=== PATIENT | female | born 1970 | race African-American/Black ===

== ENCOUNTER 2019-08-03 15:32 | Emergency (ER) | payer OTHER ==
[~2019-08-03] VITALS: Ht 165.1 cm; Wt 100.0 kg
[2019-08-03] MEDS ORDERED: VISCOUS LIDOCAINE 2% 15 ML UDC MM STA ×2 (15:53→16:36)
[2019-08-03 17:05] VITALS: BP 151/90
== END 2019-08-03 17:19 | disposition home or self-care (01) ==
LOC: ER 15:32 → EDBD 15:32 → ER 17:19
DX: S01.512A Laceration without foreign body of oral cavity, initial encounter (principal); M79.641 Pain in right hand; M79.631 Pain in right forearm; Y04.2XXA Assault by strike against or bumped into by another person, initial encounter; Y93.89 Activity, other specified; Y92.89 Other specified places as the place of occurrence of the external cause; R03.0 Elevated blood-pressure reading, without diagnosis of hypertension
CPT/HCPCS: 29125; 73090; 73130; 99283

== ENCOUNTER 2021-09-02 18:25 | Emergency (ER) | payer OTHER ==
[~2021-09-02] VITALS: Ht 170.2 cm; Wt 127.0 kg
[2021-09-02] MEDS ORDERED: DIPHENHYDRAMINE 50MG/ML VIAL IV ONE (21:30)
[2021-09-02] MEDS ORDERED: MORPHINE SULFATE 4 MG/ML CPJ (NOT FOR IM USE) IV ONE (21:30)
[2021-09-02 22:19] LABS: CHLORIDE 101 mEq/L (98-107)
[2021-09-02] MEDS ORDERED: KETOROLAC 30MG/ML VIAL IV ONE (22:45)
[2021-09-02 23:22] LABS: BASOPHILS % 0.3 % (0.0-2.0); EOSINOPHILS % 0.6 % (0.0-5.0); HEMATOCRIT. 36.4 % (36.0-48.0); HEMOGLOBIN. 12.5 g/dL (12.0-16.0); LYMPHOCYTES % 7.9 % (20.0-50.0); MEAN CORPUSCULAR HEMOGLOBIN 28.8 pg (28.0-32.0); MEAN PLATELET VOLUME 7.1 fl (7.4-10.4); MONOCYTES % 7.8 % (2.0-8.0); NEUTROPHILS % 83.4 % (40.0-76.0); PLATELET 497 x1000/uL (130-400); RED BLOOD CELL COUNT 4.33 mill/uL (4.2-5.4); RED CELL DISTRIBUTION WIDTH 14.3 % (11.6-14.6)
[2021-09-03] MEDS ORDERED: LORAZEPAM 2MG/ML CPJ IV ONE (00:30)
[2021-09-03 00:37] VITALS: BP 165/108
== END 2021-09-03 02:12 | disposition short-term general hospital (02) ==
LOC: ER 18:25
DX: R21 Rash and other nonspecific skin eruption (principal); L89.620 Pressure ulcer of left heel, unstageable; L89.612 Pressure ulcer of right heel, stage 2
CPT/HCPCS: 36415; 80053; 85025; 85651; 86141; 87040; 93970; 96374; 96375; 99284; J1200; J1885; J2060; J2270

== ENCOUNTER 2021-10-19 20:19 | Inpatient (IN) | payer OTHER ==
[~2021-10-19] VITALS: Ht 162.6 cm; Wt 139.3 kg
[2021-10-19] MEDS ORDERED: ACETAMINOPHEN 325MG TABLET PO STA (22:12)
[2021-10-19] MEDS ORDERED: SODIUM CHLORIDE 0.9% 2,100 ML IV ONE (22:15)
[2021-10-19] MEDS ORDERED: CEFTRIAXONE 1 G PREMIX 50 ML IV ONE (22:15)
[2021-10-19] MEDS ORDERED: MORPHINE SULFATE 4 MG/ML CPJ (NOT FOR IM USE) IV ONE (22:30)
[2021-10-19 23:14] LABS: HEMATOCRIT. 35.6 % (36.0-48.0); HEMOGLOBIN. 12.2 g/dL (12.0-16.0); MEAN CORPUSCULAR HEMOGLOBIN 27.3 pg (28.0-32.0); MEAN CORPUSCULAR VOLUME 79.9 fL (81.0-99.0); MEAN PLATELET VOLUME 8.5 fl (7.4-10.4); PLATELET 501 x1000/uL (130-400); RED BLOOD CELL COUNT 4.46 mill/uL (4.2-5.4); RED CELL DISTRIBUTION WIDTH 14.8 % (11.6-14.6)
[2021-10-19] MEDS ORDERED: VANCOMYCIN 1G PREMIX 200 ML IV ONE (23:15)
[2021-10-19] MEDS ORDERED: CLINDAMYCIN 600 MG in DEXTROSE 5% WATER 50 ML IV ONE (23:15)
[2021-10-19] MEDS ORDERED: MEROPENEM 1,000 MG in SODIUM CHLORIDE 0.9% 100 ML IV ONE (23:15)
[2021-10-20 00:06] LABS: PLATELET ESTIMATE INCREASED
[2021-10-20 00:36] LABS: CHLORIDE 104 mEq/L (98-107)
[2021-10-20 00:44] LABS: CREATINE KINASE 163 IU/L (26-192)
[2021-10-20] MEDS ORDERED: MORPHINE SULFATE 10 MG/ML CPJ IV ONE (01:00)
[2021-10-20] MEDS ORDERED: ONDANSETRON HCL 4MG/2ML INJ IV PRN (14:30)
[2021-10-20] MEDS ORDERED: MAGNESIUM/ALUMINUM HYDROXIDE/SIMETHICONE 30ML UDC PO PRN (14:30)
[2021-10-20] MEDS ORDERED: ACETAMINOPHEN 325MG TABLET PO PRN (14:30)
[2021-10-20] MEDS: ACETAMINOPHEN 325MG TABLET PO PRN ×2 (15:15→21:20)
[2021-10-20] MEDS: MEROPENEM 500 MG in SODIUM CHLORIDE 0.9% 50 ML IV SCH ×2 (15:15→23:07)
[2021-10-20] MEDS: VANCOMYCIN 1G PREMIX 200 ML IV SCH (15:58)
[2021-10-20 18:00] VITALS: BP_SYST 137; BP_SYST 142; BP_DIAS 96
[2021-10-20] MEDS ORDERED: LIP40 PO (19:17)
[2021-10-20] MEDS ORDERED: AMLO5TAB88 PO (19:17)
[2021-10-20] MEDS ORDERED: HYDR-459 PO (19:17)
[2021-10-20 20:00] VITALS: BP 132/89
[2021-10-20] MEDS ORDERED: ZOLPIDEM TARTRATE 5MG TABLET PO PRN (21:00)
[2021-10-20] MEDS: ENOXAPARIN 40MG/0.4ML SYR SUBCUT SCH (21:26)
[2021-10-20] MEDS: SODIUM CHLORIDE 0.9% INJ 3ML FLUSH IVF SCH (22:00)
[2021-10-21] MEDS: ACETAMINOPHEN 325MG TABLET PO PRN ×4 (01:16→20:31)
[2021-10-21] MEDS: VANCOMYCIN 1G PREMIX 200 ML IV SCH ×2 (03:32→17:00)
[2021-10-21 04:00] VITALS: BP 129/76
[2021-10-21] MEDS: SODIUM CHLORIDE 0.9% INJ 3ML FLUSH IVF SCH ×3 (05:31→21:40)
[2021-10-21] MEDS: MEROPENEM 500 MG in SODIUM CHLORIDE 0.9% 50 ML IV SCH ×3 (05:33→21:33)
[2021-10-21] MEDS: ENOXAPARIN 40MG/0.4ML SYR SUBCUT SCH (06:00)
[2021-10-21] MEDS: DIPHENHYDRAMINE 50MG/ML VIAL IV PRN (06:35)
[2021-10-21 08:00] VITALS: BP 118/55
[2021-10-21] MEDS ORDERED: NALOXONE HCL 0.4MG/ML VIAL IV PRN (11:30)
[2021-10-21 12:00] VITALS: BP 128/77
[2021-10-21] MEDS: HYDROCODONE/ACETAMINOPHEN 10/325MG TABLET PO PRN ×3 (12:36→20:30)
[2021-10-21 16:00] VITALS: BP 123/86
[2021-10-21 17:23] VITALS: BP 123/86
[2021-10-21] MEDS: ENOXAPARIN 30MG/0.3ML SYR SUBCUT SCH (18:34)
[2021-10-21 20:00] VITALS: BP 102/71
[2021-10-22] VITALS: BP 112/73
[2021-10-22 03:27] LABS: CHLORIDE 104 mEq/L (98-107)
[2021-10-22] MEDS: HYDROCODONE/ACETAMINOPHEN 10/325MG TABLET PO PRN ×3 (03:44→15:59)
[2021-10-22] MEDS: DIPHENHYDRAMINE 50MG/ML VIAL IV PRN ×2 (03:44→16:05)
[2021-10-22] MEDS: MORPHINE SULFATE 2 MG/ML CPJ (NOT FOR IM USE) IV PRN ×2 (03:44→12:10)
[2021-10-22] MEDS: ACETAMINOPHEN 325MG TABLET PO PRN (03:45)
[2021-10-22 04:00] VITALS: BP 138/82
[2021-10-22] MEDS: SODIUM CHLORIDE 0.9% INJ 3ML FLUSH IVF SCH ×3 (06:15→20:36)
[2021-10-22] MEDS: ENOXAPARIN 30MG/0.3ML SYR SUBCUT SCH ×2 (06:30→18:51)
[2021-10-22] MEDS: MEROPENEM 500 MG in SODIUM CHLORIDE 0.9% 50 ML IV SCH ×2 (06:30→15:59)
[2021-10-22] MEDS: VANCOMYCIN 1G PREMIX 200 ML IV SCH ×2 (06:30→23:48)
[2021-10-22 08:00] VITALS: BP 120/48
[2021-10-22 12:00] VITALS: BP_SYST 130
[2021-10-22 16:00] VITALS: BP 132/50
[2021-10-22] MEDS ORDERED: AZITHROMYCIN 500 MG TABLET PO NR (16:30)
[2021-10-22] MEDS: ERGOCALCIFEROL 50000UNITS CAPSULE PO SCH (18:30)
[2021-10-22 20:00] VITALS: BP 120/80
[2021-10-22] MEDS: CEFTRIAXONE 1,000 MG in DEXTROSE 5% WATER 50 ML IV SCH (20:34)
[2021-10-22] MEDS: DEXAMETHASONE 10 MG/ML VIAL IV SCH (20:35)
[2021-10-23] VITALS: BP 121/91
[2021-10-23 04:00] VITALS: BP 119/84
[2021-10-23] MEDS: ENOXAPARIN 30MG/0.3ML SYR SUBCUT SCH ×2 (06:00→18:00)
[2021-10-23] MEDS: SODIUM CHLORIDE 0.9% INJ 3ML FLUSH IVF SCH ×3 (07:41→22:01)
[2021-10-23 08:24] LABS: CHLORIDE 106 mEq/L (98-107)
[2021-10-23 08:26] LABS: HEMATOCRIT. 33.4 % (36.0-48.0); HEMOGLOBIN. 11.4 g/dL (12.0-16.0); MEAN CORPUSCULAR HEMOGLOBIN 27.5 pg (28.0-32.0); MEAN CORPUSCULAR VOLUME 80.8 fL (81.0-99.0); MEAN PLATELET VOLUME 9.3 fl (7.4-10.4); PLATELET 250 x1000/uL (130-400); RED BLOOD CELL COUNT 4.13 mill/uL (4.2-5.4); RED CELL DISTRIBUTION WIDTH 15.1 % (11.6-14.6)
[2021-10-23 08:34] LABS: CREATINE KINASE 48 IU/L (26-192)
[2021-10-23] MEDS: AZITHROMYCIN 250 MG TABLET PO SCH (09:00)
[2021-10-23] MEDS: DEXAMETHASONE 10 MG/ML VIAL IV SCH (10:16)
[2021-10-23] MEDS: MORPHINE SULFATE 2 MG/ML CPJ (NOT FOR IM USE) IV PRN (10:16)
[2021-10-23 10:53] LABS: PLATELET ESTIMATE NORMAL
[2021-10-23] MEDS ORDERED: POLYMYXIN B SULFATE 500000 UNITS/VIAL ONE (11:45)
[2021-10-23] MEDS ORDERED: GLYCOPYRROLATE 0.2 MG/ML 2ML VIAL ONE (12:39)
[2021-10-23] MEDS ORDERED: HYDROMORPHONE HCL/PF 2MG/ML (OR) ONE (12:39)
[2021-10-23] MEDS ORDERED: PROPOFOL 200MG/20ML VIAL IV ONE (12:39)
[2021-10-23] MEDS ORDERED: DEXAMETHASONE 4MG/ML 1ML VIAL ONE (12:40)
[2021-10-23] MEDS ORDERED: ROCURONIUM BROMIDE 10MG/ML VIAL 5ML IV ONE (12:57)
[2021-10-23] MEDS ORDERED: MIDAZOLAM HCL 5 MG/5 ML VIAL ONE (13:13)
[2021-10-23] MEDS ORDERED: ONDANSETRON HCL 4MG/2ML INJ IV PRN (14:30)
[2021-10-23] MEDS ORDERED: LABETALOL 5MG/ML SYR 20 MG/4 ML SYRINGE IV PRN (14:30)
[2021-10-23] MEDS ORDERED: MEPERIDINE HCL/PF 25MG/ML CPJ IV PRN (14:30)
[2021-10-23] MEDS ORDERED: HYDROMORPHONE HCL/PF 2MG/ML CPJ IV PRN (14:30)
[2021-10-23 16:40] LABS: BG BASE EXCESS -7.2 mmol/L (-2.0-2.0); BG CARBOXYHEMOGLOBIN 0.4 % (0.5-1.5); BG DEOXYHEMOGLOBIN 6.2 % (0.0-5.0); BG HCO3 ACT 20.2 mmol/L (22.0-26.0); BG METHEMOGLOBIN 0.2 % (0.0-1.5); BG OXYGEN SATURATION 93.8 % (92.0-98.5); BG OXYHEMOGLOBIN 93.2 % (94.0-97.0); BG PH 7.234 (7.350-7.450); BG SAMPLE SITE RIGHT RADIAL; BG TOTAL HEMOGLOBIN 12.1 g/dL (12.0-18.0); BG VENT MODE VENT - AC
[2021-10-23] MEDS ORDERED: NOREPINEPHRINE 8 MG in DEXT 5% WATER 242 ML IV PRN (16:45)
[2021-10-23] MEDS ORDERED: AZITHROMYCIN 500MG/250ML 250 ML IV SCH (17:45)
[2021-10-23] MEDS ORDERED: AZITHROMYCIN 500MG in DEXTROSE 5% WATER 250ML IV SCH (18:00)
[2021-10-23] MEDS: PROPOFOL 10MG/ML 100ML 100 ML IV SCH (18:07)
[2021-10-23] MEDS: CEFTRIAXONE 1,000 MG in DEXTROSE 5% WATER 50 ML IV SCH (18:23)
[2021-10-23] MEDS: VANCOMYCIN 1G PREMIX 200 ML IV SCH (20:02)
[2021-10-23 20:22] LABS: BG BASE EXCESS -4.8 mmol/L (-2.0-2.0); BG CARBOXYHEMOGLOBIN 0.2 % (0.5-1.5); BG DEOXYHEMOGLOBIN 3.6 % (0.0-5.0); BG FRACTION INSPIRED OXYGEN 100; BG HCO3 ACT 22.3 mmol/L (22.0-26.0); BG METHEMOGLOBIN 0.3 % (0.0-1.5); BG OXYGEN SATURATION 96.4 % (92.0-98.5); BG OXYHEMOGLOBIN 95.9 % (94.0-97.0); BG PCO2 50.4 mmHg (35.0-45.0); BG PH 7.264 (7.350-7.450); BG SAMPLE SITE RIGHT BRACHIAL; BG TOTAL HEMOGLOBIN 11.6 g/dL (12.0-18.0); BG TOTAL RESPIRATORY RATE 20 b/min; BG VENT MODE VENT - AC
[2021-10-24] VITALS (32 sets, daily range): BP systolic 80–153; BP diastolic 63–104
[2021-10-24] MEDS: SODIUM CHLORIDE 0.9% INJ 3ML FLUSH IVF SCH ×2 (06:00→12:54)
[2021-10-24 07:34] LABS: BG BASE EXCESS -4.5 mmol/L (-2.0-2.0); BG DEOXYHEMOGLOBIN 1.8 % (0.0-5.0); BG FRACTION INSPIRED OXYGEN 100; BG HCO3 ACT 21.2 mmol/L (22.0-26.0); BG METHEMOGLOBIN 0.1 % (0.0-1.5); BG OXYGEN SATURATION 98.2 % (92.0-98.5); BG OXYHEMOGLOBIN 98.1 % (94.0-97.0); BG PCO2 41.7 mmHg (35.0-45.0); BG PH 7.324 (7.350-7.450); BG PO2 135.8 mmHg (75.0-100.0); BG SAMPLE SITE RIGHT RADIAL; BG TOTAL HEMOGLOBIN 10.5 g/dL (12.0-18.0); BG TOTAL RESPIRATORY RATE 22 b/min; BG VENT MODE VENT - AC
[2021-10-24 08:22] LABS: CHLORIDE 107 mEq/L (98-107)
[2021-10-24] MEDS: AZITHROMYCIN 250 MG TABLET PO SCH (08:48)
[2021-10-24] MEDS ORDERED: ENOXAPARIN 30MG/0.3ML SYR SUBCUT SCH (09:00)
[2021-10-24] MEDS: DEXAMETHASONE 10 MG/ML VIAL IV SCH (09:48)
[2021-10-24] MEDS ORDERED: PROPOFOL 10MG/ML 100ML 100 ML IV ONE (10:06)
[2021-10-24] MEDS ORDERED: FENTANYL CITRATE/PF 2,500 MCG in SODIUM CHLORIDE 0.9% 200 ML IV PRN (10:15)
[2021-10-24] MEDS: DEXT 5%/LACTATED RINGERS 1,000 ML IV SCH ×2 (10:30→21:51)
[2021-10-24] MEDS: PROPOFOL 10MG/ML 100ML 100 ML IV SCH (10:49)
[2021-10-24] MEDS: MIDAZOLAM HCL 100 MG in SODIUM CHLORIDE 0.9% 80 ML IV PRN ×2 (11:13→21:47)
[2021-10-24] MEDS ORDERED: FENTANYL CITRATE 2,500 MCG in SODIUM CHLORIDE 0.9% 200 ML IV PRN (11:15)
[2021-10-24] MEDS: FENTANYL CITRATE 2,500 MCG in SODIUM CHLORIDE 0.9% 200 ML IV PRN (11:18)
[2021-10-24] MEDS: VANCOMYCIN 1G PREMIX 200 ML IV SCH (12:53)
[2021-10-24 13:08] LABS: BG BASE EXCESS -4.6 mmol/L (-2.0-2.0); BG CARBOXYHEMOGLOBIN 0.3 % (0.5-1.5); BG DEOXYHEMOGLOBIN 9.1 % (0.0-5.0); BG HCO3 ACT 20.5 mmol/L (22.0-26.0); BG METHEMOGLOBIN 0.1 % (0.0-1.5); BG OXYGEN SATURATION 90.9 % (92.0-98.5); BG OXYHEMOGLOBIN 90.5 % (94.0-97.0); BG PCO2 37.9 mmHg (35.0-45.0); BG PO2 63.2 mmHg (75.0-100.0); BG SAMPLE SITE RIGHT RADIAL; BG TOTAL HEMOGLOBIN 12.5 g/dL (12.0-18.0); BG VENT MODE VENT - AC
[2021-10-24] MEDS: AZITHROMYCIN 500MG in DEXTROSE 5% WATER 250ML IV SCH (17:32)
[2021-10-24] MEDS: CEFTRIAXONE 1,000 MG in DEXTROSE 5% WATER 50 ML IV SCH (17:32)
[2021-10-24] MEDS ORDERED: AZITHROMYCIN 500MG in DEXTROSE 5% WATER 250ML IV SCH (18:00)
[2021-10-24] MEDS ORDERED: SODIUM POLYSTYRENE SULFONATE 15 G/60 ML BOT PO NR (18:30)
[2021-10-24] MEDS: ENOXAPARIN 30MG/0.3ML SYR SUBCUT SCH (21:46)
[2021-10-25] VITALS (45 sets, daily range): BP systolic 115–154; BP diastolic 50–98
[2021-10-25] MEDS: FENTANYL CITRATE 2,500 MCG in SODIUM CHLORIDE 0.9% 200 ML IV PRN ×2 (03:56→22:15)
[2021-10-25] MEDS: DEXT 5%/LACTATED RINGERS 1,000 ML IV SCH ×2 (06:30→16:28)
[2021-10-25] MEDS: DEXAMETHASONE 10 MG/ML VIAL IV SCH (08:50)
[2021-10-25] MEDS: ENOXAPARIN 30MG/0.3ML SYR SUBCUT SCH ×2 (08:50→22:14)
[2021-10-25 11:05] LABS: HEMATOCRIT. 28.9 % (36.0-48.0); HEMOGLOBIN. 9.3 g/dL (12.0-16.0); MEAN CORPUSCULAR HEMOGLOBIN 26.2 pg (28.0-32.0); MEAN CORPUSCULAR VOLUME 81.7 fL (81.0-99.0); MEAN PLATELET VOLUME 9.3 fl (7.4-10.4); PLATELET 241 x1000/uL (130-400); RED BLOOD CELL COUNT 3.54 mill/uL (4.2-5.4); RED CELL DISTRIBUTION WIDTH 15.5 % (11.6-14.6)
[2021-10-25 11:41] LABS: CHLORIDE 108 mEq/L (98-107)
[2021-10-25 12:10] LABS: PLATELET ESTIMATE NORMAL
[2021-10-25] MEDS ORDERED: VANCOMYCIN 1G PREMIX 200 ML IV SCH (14:00)
[2021-10-25] MEDS: MIDAZOLAM HCL 100 MG in SODIUM CHLORIDE 0.9% 80 ML IV PRN (16:19)
[2021-10-25] MEDS: CEFTRIAXONE 1,000 MG in DEXTROSE 5% WATER 50 ML IV SCH (16:59)
[2021-10-25] MEDS ORDERED: SODIUM POLYSTYRENE SULFONATE 15 G/60 ML BOT PO NR (18:00)
[2021-10-25] MEDS: AZITHROMYCIN 500MG in DEXTROSE 5% WATER 250ML IV SCH (18:21)
[2021-10-26] VITALS (42 sets, daily range): BP systolic 100–169; BP diastolic 54–113
[2021-10-26] MEDS: DEXT 5%/LACTATED RINGERS 1,000 ML IV SCH ×3 (04:09→22:52)
[2021-10-26] MEDS: MORPHINE SULFATE 2 MG/ML CPJ (NOT FOR IM USE) IV PRN (04:54)
[2021-10-26 08:52] LABS: BG BASE EXCESS -3.3 mmol/L (-2.0-2.0); BG CARBOXYHEMOGLOBIN 0.3 % (0.5-1.5); BG DEOXYHEMOGLOBIN 2.1 % (0.0-5.0); BG FRACTION INSPIRED OXYGEN 70; BG HCO3 ACT 24.1 mmol/L (22.0-26.0); BG METHEMOGLOBIN 0.2 % (0.0-1.5); BG OXYGEN SATURATION 97.9 % (92.0-98.5); BG OXYHEMOGLOBIN 97.4 % (94.0-97.0); BG PCO2 54.5 mmHg (35.0-45.0); BG PH 7.263 (7.350-7.450); BG PO2 121.9 mmHg (75.0-100.0); BG SAMPLE SITE RIGHT RADIAL; BG TOTAL HEMOGLOBIN 10.6 g/dL (12.0-18.0); BG VENT MODE VENT - AC
[2021-10-26] MEDS: PANTOPRAZOLE SODIUM 40 MG/VIAL IV SCH (09:07)
[2021-10-26] MEDS: DEXAMETHASONE 10 MG/ML VIAL IV SCH (09:07)
[2021-10-26] MEDS: ENOXAPARIN 30MG/0.3ML SYR SUBCUT SCH ×2 (09:08→22:39)
[2021-10-26] MEDS: FENTANYL CITRATE 2,500 MCG in SODIUM CHLORIDE 0.9% 200 ML IV PRN (13:56)
[2021-10-26] MEDS: CEFTRIAXONE 1,000 MG in DEXTROSE 5% WATER 50 ML IV SCH (16:34)
[2021-10-26] MEDS ORDERED: VANCOMYCIN 1G PREMIX 200 ML IV SCH (17:00)
[2021-10-26] MEDS: AZITHROMYCIN 500MG in DEXTROSE 5% WATER 250ML IV SCH (17:28)
[2021-10-26] MEDS: CLONIDINE 0.1MG TABLET PO PRN (22:52)
[2021-10-27] VITALS (69 sets, daily range): BP systolic 135–177; BP diastolic 76–115
[2021-10-27] MEDS ORDERED: NALOXONE HCL 0.4MG/ML VIAL IV PRN (01:00)
[2021-10-27] MEDS: MORPHINE SULFATE 2 MG/ML CPJ (NOT FOR IM USE) IV PRN (01:09)
[2021-10-27] MEDS: FENTANYL CITRATE 2,500 MCG in SODIUM CHLORIDE 0.9% 200 ML IV PRN ×2 (02:29→16:40)
[2021-10-27] MEDS: HYDRALAZINE 20MG/ML VIAL IV PRN ×2 (04:32→10:37)
[2021-10-27 06:43] LABS: CHLORIDE 112 mEq/L (98-107)
[2021-10-27] MEDS: CLONIDINE 0.1MG TABLET PO PRN (07:06)
[2021-10-27] MEDS: DEXAMETHASONE 10 MG/ML VIAL IV SCH (09:11)
[2021-10-27] MEDS: FOLIC ACID/VITAMIN B COMP W-C TABLET PO SCH (09:11)
[2021-10-27] MEDS: DEXT 5%/LACTATED RINGERS 1,000 ML IV SCH ×2 (09:11→17:45)
[2021-10-27] MEDS: PANTOPRAZOLE SODIUM 40 MG/VIAL IV SCH (09:11)
[2021-10-27] MEDS: ZINC SULFATE 220 MG ( 50 ) CAPSULE PO SCH (09:11)
[2021-10-27] MEDS: ASCORBIC ACID 500 MG TABLET PO SCH (09:11)
[2021-10-27] MEDS: ENOXAPARIN 30MG/0.3ML SYR SUBCUT SCH ×2 (09:12→22:03)
[2021-10-27] MEDS: VANCOMYCIN 1G PREMIX 200 ML IV SCH (10:23)
[2021-10-27 13:54] LABS: BG BASE EXCESS -3.8 mmol/L (-2.0-2.0); BG CARBOXYHEMOGLOBIN 0.3 % (0.5-1.5); BG DEOXYHEMOGLOBIN 1.9 % (0.0-5.0); BG FRACTION INSPIRED OXYGEN 60; BG HCO3 ACT 22.7 mmol/L (22.0-26.0); BG METHEMOGLOBIN 0.3 % (0.0-1.5); BG OXYGEN SATURATION 98.1 % (92.0-98.5); BG OXYHEMOGLOBIN 97.5 % (94.0-97.0); BG PH 7.301 (7.350-7.450); BG PO2 124.1 mmHg (75.0-100.0); BG SAMPLE SITE RIGHT RADIAL; BG VENT MODE VENT - AC
[2021-10-27] MEDS: CEFTRIAXONE 1,000 MG in DEXTROSE 5% WATER 50 ML IV SCH (16:39)
[2021-10-27] MEDS: AZITHROMYCIN 500MG in DEXTROSE 5% WATER 250ML IV SCH (17:44)
[2021-10-27] MEDS: HYDRALAZINE HCL 50MG TABLET NG SCH (22:03)
[2021-10-28] VITALS (72 sets, daily range): BP systolic 137–173; BP diastolic 48–116
[2021-10-28 05:23] LABS: CHLORIDE 112 mEq/L (98-107)
[2021-10-28 05:27] LABS: HEMATOCRIT. 26.8 % (36.0-48.0); MEAN CORPUSCULAR HEMOGLOBIN 27.3 pg (28.0-32.0); MEAN CORPUSCULAR VOLUME 81.6 fL (81.0-99.0); MEAN PLATELET VOLUME 9.5 fl (7.4-10.4); PLATELET 270 x1000/uL (130-400); RED BLOOD CELL COUNT 3.29 mill/uL (4.2-5.4); RED CELL DISTRIBUTION WIDTH 15.3 % (11.6-14.6)
[2021-10-28] MEDS: HYDRALAZINE HCL 50MG TABLET NG SCH (06:16)
[2021-10-28 07:56] LABS: NUCLEATED RED BLOOD CELLS 1 /100 WBC
[2021-10-28 07:57] LABS: PLATELET ESTIMATE NORMAL
[2021-10-28] MEDS: ASCORBIC ACID 500 MG TABLET PO SCH (08:42)
[2021-10-28] MEDS: ZINC SULFATE 220 MG ( 50 ) CAPSULE PO SCH (08:42)
[2021-10-28] MEDS: ENOXAPARIN 30MG/0.3ML SYR SUBCUT SCH ×2 (08:42→21:39)
[2021-10-28] MEDS: PANTOPRAZOLE SODIUM 40 MG/VIAL IV SCH (08:42)
[2021-10-28] MEDS: DEXAMETHASONE 10 MG/ML VIAL IV SCH (08:42)
[2021-10-28] MEDS: FOLIC ACID/VITAMIN B COMP W-C TABLET PO SCH (08:42)
[2021-10-28] MEDS: FENTANYL CITRATE 2,500 MCG in SODIUM CHLORIDE 0.9% 200 ML IV PRN ×2 (08:43→22:19)
[2021-10-28] MEDS: VANCOMYCIN 1G PREMIX 200 ML IV SCH (08:44)
[2021-10-28 09:39] LABS: BG BASE EXCESS 0.4 mmol/L (-2.0-2.0); BG CARBOXYHEMOGLOBIN 0.1 % (0.5-1.5); BG DEOXYHEMOGLOBIN 2.3 % (0.0-5.0); BG FRACTION INSPIRED OXYGEN 40; BG HCO3 ACT 26.1 mmol/L (22.0-26.0); BG OXYGEN SATURATION 97.7 % (92.0-98.5); BG OXYHEMOGLOBIN 97.6 % (94.0-97.0); BG PCO2 47.1 mmHg (35.0-45.0); BG PH 7.362 (7.350-7.450); BG PO2 110.7 mmHg (75.0-100.0); BG SAMPLE SITE RIGHT RADIAL; BG TOTAL HEMOGLOBIN 9.7 g/dL (12.0-18.0); BG TOTAL RESPIRATORY RATE 30 b/min; BG VENT MODE VENT - AC
[2021-10-28] MEDS: HYDRALAZINE 20MG/ML VIAL IV PRN ×2 (12:30→17:31)
[2021-10-28] MEDS: METRONIDAZOLE 500MG TABLET PO SCH ×2 (14:00→21:40)
[2021-10-28] MEDS: DEXT 5%/LACTATED RINGERS 1,000 ML IV SCH ×3 (14:30→23:21)
[2021-10-28] MEDS: CEFTRIAXONE 1,000 MG in DEXTROSE 5% WATER 50 ML IV SCH (16:29)
[2021-10-28] MEDS: HYDRALAZINE HCL 100MG TABLET NG SCH (21:40)
[2021-10-29] VITALS (77 sets, daily range): BP systolic 140–197; BP diastolic 59–133
[2021-10-29] MEDS: METRONIDAZOLE 500MG TABLET PO SCH ×3 (05:44→22:00)
[2021-10-29] MEDS: HYDRALAZINE HCL 100MG TABLET NG SCH ×3 (05:44→22:00)
[2021-10-29] MEDS: HYDRALAZINE 20MG/ML VIAL IV PRN ×3 (07:19→15:47)
[2021-10-29 08:45] LABS: BG BASE EXCESS 0.8 mmol/L (-2.0-2.0); BG CARBOXYHEMOGLOBIN 0.1 % (0.5-1.5); BG DEOXYHEMOGLOBIN 1.5 % (0.0-5.0); BG HCO3 ACT 25.8 mmol/L (22.0-26.0); BG METHEMOGLOBIN 0.3 % (0.0-1.5); BG OXYGEN SATURATION 98.5 % (92.0-98.5); BG OXYHEMOGLOBIN 98.1 % (94.0-97.0); BG PCO2 43.2 mmHg (35.0-45.0); BG PH 7.394 (7.350-7.450); BG PO2 132.5 mmHg (75.0-100.0); BG SAMPLE SITE RIGHT RADIAL; BG VENT MODE VENT - CPAP
[2021-10-29] MEDS: ASCORBIC ACID 500 MG TABLET PO SCH (08:52)
[2021-10-29] MEDS: ZINC SULFATE 220 MG ( 50 ) CAPSULE PO SCH (08:52)
[2021-10-29] MEDS: PANTOPRAZOLE SODIUM 40 MG/VIAL IV SCH (08:52)
[2021-10-29] MEDS: DEXAMETHASONE 10 MG/ML VIAL IV SCH (08:52)
[2021-10-29] MEDS: FOLIC ACID/VITAMIN B COMP W-C TABLET PO SCH (08:52)
[2021-10-29] MEDS: ENOXAPARIN 30MG/0.3ML SYR SUBCUT SCH ×2 (08:53→21:00)
[2021-10-29] MEDS: VANCOMYCIN 1G PREMIX 200 ML IV SCH (08:54)
[2021-10-29] MEDS: DEXT 5%/LACTATED RINGERS 1,000 ML IV SCH ×2 (11:16→20:30)
[2021-10-29] MEDS: MORPHINE SULFATE 2 MG/ML CPJ (NOT FOR IM USE) IV PRN ×2 (11:31→17:57)
[2021-10-29] MEDS: CEFTRIAXONE 1,000 MG in DEXTROSE 5% WATER 50 ML IV SCH (16:49)
[2021-10-29] MEDS: ERGOCALCIFEROL 50000UNITS CAPSULE PO SCH (18:30)
[2021-10-29] MEDS: METOPROLOL TARTRATE 50MG TABLET NG SCH (21:00)
[2021-10-30] VITALS (64 sets, daily range): BP systolic 129–179; BP diastolic 70–105
[2021-10-30] MEDS: METRONIDAZOLE 500MG TABLET PO SCH ×3 (05:32→21:47)
[2021-10-30] MEDS: HYDRALAZINE 20MG/ML VIAL IV PRN ×2 (05:33→15:49)
[2021-10-30] MEDS: CLONIDINE 0.1MG TABLET PO PRN (05:33)
[2021-10-30] MEDS: HYDRALAZINE HCL 100MG TABLET NG SCH ×3 (05:34→21:46)
[2021-10-30] MEDS: DIPHENHYDRAMINE 50MG/ML VIAL IV PRN (05:35)
[2021-10-30] MEDS: MORPHINE SULFATE 2 MG/ML CPJ (NOT FOR IM USE) IV PRN ×3 (05:35→21:46)
[2021-10-30] MEDS: DEXT 5%/LACTATED RINGERS 1,000 ML IV SCH ×2 (06:10→15:20)
[2021-10-30 06:42] LABS: CHLORIDE 113 mEq/L (98-107)
[2021-10-30] MEDS: PANTOPRAZOLE SODIUM 40 MG/VIAL IV SCH (08:47)
[2021-10-30] MEDS: ENOXAPARIN 30MG/0.3ML SYR SUBCUT SCH ×2 (08:48→21:48)
[2021-10-30] MEDS: ZINC SULFATE 220 MG ( 50 ) CAPSULE PO SCH (08:48)
[2021-10-30] MEDS: DEXAMETHASONE 10 MG/ML VIAL IV SCH (08:48)
[2021-10-30] MEDS: FOLIC ACID/VITAMIN B COMP W-C TABLET PO SCH (08:48)
[2021-10-30] MEDS: VANCOMYCIN 1G PREMIX 200 ML IV SCH (08:48)
[2021-10-30] MEDS: METOPROLOL TARTRATE 50MG TABLET NG SCH ×2 (08:48→21:47)
[2021-10-30] MEDS: ASCORBIC ACID 500 MG TABLET PO SCH (08:48)
[2021-10-30] MEDS ORDERED: POTASSIUM CHLORIDE 20MEQ/PACKET PO NR (15:15)
[2021-10-30] MEDS: CEFTRIAXONE 1,000 MG in DEXTROSE 5% WATER 50 ML IV SCH (15:49)
[2021-10-31] MEDS: MORPHINE SULFATE 2 MG/ML CPJ (NOT FOR IM USE) IV PRN ×2 (05:45→13:34)
[2021-10-31] MEDS: METRONIDAZOLE 500MG TABLET PO SCH ×3 (06:00→21:29)
[2021-10-31] MEDS: HYDRALAZINE HCL 100MG TABLET NG SCH ×3 (07:36→21:29)
[2021-10-31 08:00] VITALS: BP 176/95
[2021-10-31] MEDS: PANTOPRAZOLE SODIUM 40 MG/VIAL IV SCH (09:22)
[2021-10-31] MEDS: FOLIC ACID/VITAMIN B COMP W-C TABLET PO SCH (09:22)
[2021-10-31] MEDS: ZINC SULFATE 220 MG ( 50 ) CAPSULE PO SCH (09:23)
[2021-10-31] MEDS: METOPROLOL TARTRATE 50MG TABLET NG SCH ×2 (09:23→21:28)
[2021-10-31] MEDS: ENOXAPARIN 30MG/0.3ML SYR SUBCUT SCH ×2 (09:23→21:29)
[2021-10-31] MEDS: ASCORBIC ACID 500 MG TABLET PO SCH (09:23)
[2021-10-31] MEDS: VANCOMYCIN 1250MG in DEXTROSE 5% WATER 250ML IV SCH (09:54)
[2021-10-31] MEDS: DEXAMETHASONE 10 MG/ML VIAL IV SCH (09:54)
[2021-10-31 12:00] VITALS: BP 152/82
[2021-10-31] MEDS ORDERED: [UNRECOGNIZED DRUG - REMARK] XX SCH (13:00)
[2021-10-31] MEDS: DEXT 5%/LACTATED RINGERS 1,000 ML IV SCH ×3 (14:12→22:49)
[2021-10-31 16:00] VITALS: BP 152/71
[2021-10-31] MEDS: CEFTRIAXONE 1,000 MG in DEXTROSE 5% WATER 50 ML IV SCH (16:56)
[2021-10-31 20:25] VITALS: BP 162/83
[2021-11-01 00:40] VITALS: BP 155/92
[2021-11-01 04:00] VITALS: BP 148/76
[2021-11-01] MEDS: MORPHINE SULFATE 2 MG/ML CPJ (NOT FOR IM USE) IV PRN ×2 (04:59→11:14)
[2021-11-01 06:09] LABS: BASOPHILS % 0.2 % (0.0-2.0); EOSINOPHILS % 0.3 % (0.0-5.0); HEMATOCRIT. 28.3 % (36.0-48.0); HEMOGLOBIN. 9.5 g/dL (12.0-16.0); LYMPHOCYTES % 7.1 % (20.0-50.0); MEAN CORPUSCULAR HEMOGLOBIN 27.4 pg (28.0-32.0); MEAN CORPUSCULAR VOLUME 81.3 fL (81.0-99.0); MEAN PLATELET VOLUME 8.8 fl (7.4-10.4); MONOCYTES % 5.6 % (2.0-8.0); NEUTROPHILS % 86.8 % (40.0-76.0); PLATELET 317 x1000/uL (130-400); RED BLOOD CELL COUNT 3.48 mill/uL (4.2-5.4); RED CELL DISTRIBUTION WIDTH 16.4 % (11.6-14.6)
[2021-11-01] MEDS: METRONIDAZOLE 500MG TABLET PO SCH ×3 (06:45→21:09)
[2021-11-01] MEDS: HYDRALAZINE HCL 100MG TABLET NG SCH ×3 (06:45→21:10)
[2021-11-01 08:00] VITALS: BP 158/77
[2021-11-01] MEDS: FOLIC ACID/VITAMIN B COMP W-C TABLET PO SCH (08:49)
[2021-11-01] MEDS: ASCORBIC ACID 500 MG TABLET PO SCH (08:49)
[2021-11-01] MEDS: PANTOPRAZOLE SODIUM 40 MG/VIAL IV SCH (08:49)
[2021-11-01] MEDS: ZINC SULFATE 220 MG ( 50 ) CAPSULE PO SCH (08:49)
[2021-11-01] MEDS: ACETAMINOPHEN 325MG TABLET PO PRN ×2 (08:50→20:37)
[2021-11-01] MEDS: ENOXAPARIN 30MG/0.3ML SYR SUBCUT SCH ×2 (08:50→21:09)
[2021-11-01] MEDS: METOPROLOL TARTRATE 50MG TABLET NG SCH ×2 (08:50→21:10)
[2021-11-01] MEDS: DEXT 5%/LACTATED RINGERS 1,000 ML IV SCH ×2 (08:52→18:12)
[2021-11-01 09:04] LABS: BG BASE EXCESS -1.2 mmol/L (-2.0-2.0); BG CARBOXYHEMOGLOBIN 0.1 % (0.5-1.5); BG FRACTION INSPIRED OXYGEN 32; BG HCO3 ACT 22.4 mmol/L (22.0-26.0); BG METHEMOGLOBIN 0.3 % (0.0-1.5); BG OXYHEMOGLOBIN 95.6 % (94.0-97.0); BG PCO2 33.6 mmHg (35.0-45.0); BG PH 7.442 (7.350-7.450); BG PO2 80.7 mmHg (75.0-100.0); BG SAMPLE SITE RIGHT RADIAL; BG TOTAL HEMOGLOBIN 10.3 g/dL (12.0-18.0); BG VENT MODE NASAL CANNULA
[2021-11-01 09:34] LABS: CHLORIDE 107 mEq/L (98-107)
[2021-11-01] MEDS: VANCOMYCIN 1250MG in DEXTROSE 5% WATER 250ML IV SCH (09:43)
[2021-11-01 12:00] VITALS: BP 156/78
[2021-11-01 16:00] VITALS: BP 144/87
[2021-11-01] MEDS: CEFTRIAXONE 1,000 MG in DEXTROSE 5% WATER 50 ML IV SCH (16:04)
[2021-11-01] MEDS: HYDROCODONE/ACETAMINOPHEN 10/325MG TABLET PO PRN (16:44)
[2021-11-01] MEDS ORDERED: HYDRALAZINE 10 MG in SODIUM CHLORIDE 0.9% 49.5 ML IV PRN (16:45)
[2021-11-01 20:00] VITALS: BP 136/85
[2021-11-01] MEDS: DIPHENHYDRAMINE 50MG/ML VIAL IV PRN (20:38)
[2021-11-02] VITALS: BP 125/74
[2021-11-02] MEDS: MORPHINE SULFATE 2 MG/ML CPJ (NOT FOR IM USE) IV PRN (02:07)
[2021-11-02 04:00] VITALS: BP 108/75
[2021-11-02] MEDS: METRONIDAZOLE 500MG TABLET PO SCH ×2 (05:20→13:39)
[2021-11-02] MEDS: HYDRALAZINE HCL 100MG TABLET NG SCH ×2 (05:21→13:39)
[2021-11-02] MEDS: DEXT 5%/LACTATED RINGERS 1,000 ML IV SCH ×2 (05:22→13:40)
[2021-11-02 08:00] VITALS: BP 141/90
[2021-11-02] MEDS: PANTOPRAZOLE SODIUM 40 MG/VIAL IV SCH (08:45)
[2021-11-02] MEDS: ZINC SULFATE 220 MG ( 50 ) CAPSULE PO SCH (08:53)
[2021-11-02] MEDS: METOPROLOL TARTRATE 50MG TABLET NG SCH (08:53)
[2021-11-02] MEDS: ASCORBIC ACID 500 MG TABLET PO SCH (08:53)
[2021-11-02] MEDS: FOLIC ACID/VITAMIN B COMP W-C TABLET PO SCH (08:54)
[2021-11-02] MEDS: ENOXAPARIN 30MG/0.3ML SYR SUBCUT SCH ×2 (08:55→20:48)
[2021-11-02] MEDS: HYDROCODONE/ACETAMINOPHEN 10/325MG TABLET PO PRN ×2 (09:03→15:40)
[2021-11-02] MEDS: VANCOMYCIN 1250MG in DEXTROSE 5% WATER 250ML IV SCH (11:39)
[2021-11-02 12:00] VITALS: BP 151/84
[2021-11-02] MEDS: CEFTRIAXONE 1,000 MG in DEXTROSE 5% WATER 50 ML IV SCH (15:39)
[2021-11-02 16:00] VITALS: BP 129/66
[2021-11-02 20:00] VITALS: BP 113/58
[2021-11-02] MEDS: DIPHENHYDRAMINE 50MG/ML VIAL IV PRN (20:48)
== END 2021-11-02 21:21 | disposition short-term general hospital (02) | DRG 853 ==
LOC: ER 20:19 → MICUSO 10-20 05:15 → EDBEDREQTM 10-20 05:32 → EDBEDREQ 10-20 05:32 → 7WST 10-20 20:00 → PACU 10-23 20:32 → MICUSO 10-24 10:26 → 7WST 10-24 15:00 → MICUSO 10-26 21:59 → 7WST 10-30 18:05 → 6EST 11-01 16:15
PROVIDERS: ADMIT Internal Medicine; ATTEND Internal Medicine
PROC: 5A1955Z Respiratory Ventilation, Greater than 96 Consecutive Hours (ICD-10-PCS; principal; 2021-10-23)
PROC: 0JBN0ZZ Excision of Right Lower Leg Subcutaneous Tissue and Fascia, Open Approach (ICD-10-PCS; 2021-10-23)
PROC: 0BH17EZ Insertion of Endotracheal Airway into Trachea, Via Natural or Artificial Opening (ICD-10-PCS; 2021-10-23)
DX: A41.89 Other specified sepsis (principal); U07.1 COVID-19; E43 Unspecified severe protein-calorie malnutrition; J96.01 Acute respiratory failure with hypoxia; J12.82 Pneumonia due to coronavirus disease 2019; E87.1 Hypo-osmolality and hyponatremia; Z68.43 Body mass index [BMI] 50.0-59.9, adult; E87.2 Acidosis; L97.909 Non-pressure chronic ulcer of unspecified part of unspecified lower leg with unspecified severity; L03.314 Cellulitis of groin; L03.116 Cellulitis of left lower limb; L03.115 Cellulitis of right lower limb; E66.9 Obesity, unspecified; E87.5 Hyperkalemia; E66.01 Morbid (severe) obesity due to excess calories; A41.01 Sepsis due to Methicillin susceptible Staphylococcus aureus; L30.9 Dermatitis, unspecified; I11.0 Hypertensive heart disease with heart failure; I50.9 Heart failure, unspecified; Z88.0 Allergy status to penicillin; Z88.2 Allergy status to sulfonamides; Z87.891 Personal history of nicotine dependence
CPT/HCPCS: 36415; 36600; 71045; 72192; 73700; 80048; 80076; 80202; 82375; 82550; 82805; 82962; 83605; 83880; 84145; 84478; 84484; 85025; 85651; 86140; 87070; 87077; 87186; 87426; 88305; 88312; 92610; 93005; 93306; 94002; 94003; 97162; 99291; C1893; C9113; J0360; J0456; J0696; J1100; J1170; J1200; J1650; J2175; J2185; J2250; J2270; J2405; J2704; J3010; J3370; J3490; J7030; J7040; J7042; J7050; J7060; J7121

== ENCOUNTER 2025-07-20 23:25 | Emergency (ER) | payer OTHER, MEDICAID ==
[~2025-07-20] VITALS: Ht 165.1 cm; Wt 114.0 kg
[~2025-07-20 23:25] MED LIST: AMLO5TAB88 PO; HYDR-459 PO; LIP40 PO
[2025-07-20 23:33] VITALS: O2SAT 97
[2025-07-21 00:24] LABS: BASOPHILS % 0.6 % (0.0-2.0); EOSINOPHILS % 2.8 % (0.0-5.0); HEMATOCRIT. 38.1 % (36.0-48.0); HEMOGLOBIN. 12.6 g/dL (12.0-16.0); LYMPHOCYTES % 19.0 % (20.0-50.0); MEAN PLATELET VOLUME 8.4 fl (7.4-10.4); MONOCYTES % 3.5 % (2.0-8.0); NEUTROPHILS % 74.1 % (40.0-76.0); PLATELET 264 x1000/uL (130-400); RED BLOOD CELL COUNT 4.72 mill/uL (4.2-5.4); RED CELL DISTRIBUTION WIDTH 15.7 % (11.6-14.6)
[2025-07-21 00:31] LABS: INR 1.0
[2025-07-21 00:43] LABS: CREATININE 0.9 mg/dL (0.6-1.0)
[2025-07-21 00:44] LABS: TROPONIN I HIGH SENSITIVITY < 4 ng/L (3.0-34); UREA NITROGEN BLOOD 7 mg/dL (9-23)
[2025-07-21 00:45] LABS: ASPARTATE AMINOTRANSFERASE 11 IU/L (<34)
[2025-07-21 00:46] LABS: BILIRUBIN DIRECT < 0.1 mg/dL (<=3.0); BILIRUBIN TOTAL < 0.2 mg/dL (0.1-1.0); PROTEIN TOTAL 7.2 g/dL (6.0-8.3)
[2025-07-21] MEDS: MAGNESIUM/ALUMINUM HYDROXIDE/SIMETHICONE 30ML UDC PO ONE (00:57)
[2025-07-21] MEDS ORDERED: P20 MT (02:19)
[2025-07-21] MEDS ORDERED: DIPH25TA62 MT (02:19)
[2025-07-21 02:40] LABS: CLARITY URINE CLEAR (CLEAR); COLOR URINE YELLOW (YELLOW); GLUCOSE URINE NEGATIVE (NEGATIVE); KETONES URINE NEGATIVE (NEGATIVE); LEUKOCYTE ESTERASE URINE NEGATIVE (NEGATIVE); NITRITE URINE NEGATIVE (NEGATIVE); OCCULT BLOOD URINE NEGATIVE (NEGATIVE); PH URINE 5.5 (4.5-8.0); PROTEIN URINE NEGATIVE (NEGATIVE); SPECIFIC GRAVITY URINE 1.005 (1.005-1.030); UROBILINOGEN URINE 0.2 E.U./dL (0.2-1.0)
[2025-07-21 02:53] LABS: *AMPHETAMINES SCREEN URINE NEGATIVE (NEGATIVE); *BARBITURATES SCREEN URINE NEGATIVE (NEGATIVE); *BENZODIAZEPINES SCREEN URINE NEGATIVE (NEGATIVE); *COCAINE SCREEN URINE NEGATIVE (NEGATIVE); METHADONE URINE SCREEN NEGATIVE (NEGATIVE)
[2025-07-21 02:54] LABS: CANNABINOID URINE SCREEN PRESUMPTIVE POSITIVE (NEGATIVE); ECSTASY MDMA SCREEN URINE NEGATIVE (NEGATIVE); OPIATES URINE SCREEN NEGATIVE (NEGATIVE); PHENCYCLIDINE URINE SCREEN NEGATIVE (NEGATIVE)
[2025-07-21] MEDS: PREDNISONE 20MG TABLET PO SCH (03:14)
[2025-07-21 03:38] VITALS: BP 110/76; PULSE 82; RESP 20; TEMP 37; O2SAT 96
[2025-07-22] MEDS ORDERED: INFLUENZA VACCINE 05/PF 0.5 ML SYRINGE IM ONE (09:00)
== END 2025-07-21 03:42 | disposition home or self-care (01) ==
LOC: ER 23:25 → CMPBEDREQ 07-22 08:00
DX: L30.9 Dermatitis, unspecified (principal); R10.13 Epigastric pain; R06.02 Shortness of breath; I11.9 Hypertensive heart disease without heart failure; Z88.0 Allergy status to penicillin; Z88.1 Allergy status to other antibiotic agents; Z88.2 Allergy status to sulfonamides
CPT/HCPCS: 36415; 71045; 93005; 99285; 80076; 80305; 80048; 81003; 80320; 83880; 83735; 85025; 85610; 85730; 84484; J7512; G0480